=== PATIENT | male | born 1975 | race Hispanic/Latino ===

== ENCOUNTER 2018-09-28 13:35 | Emergency (ER) | payer OTHER ==
--- NOTE | 2018-09-28 14:39 | RAD ---
THREE VIEWS RIGHT HAND: Comparison: None. History: Fall from ladder 10 ft with right hand pain. FINDINGS: Three views of the right hand shows a fracture adjacent to the DIP joint of the middle finger. This f racture likely arises from the base of the distal phalanx. Surrounding soft tissue swelling is seen. There is a lucency in the distal aspect of the middle phalanx which could also potentially represent a fracture. IMPRESSION: Fracture of the ring finger distal phalanx with possible additional fracture of the middle phalanx. POS: TPC
--- NOTE | 2018-09-28 15:07 | RAD ---
RADIOGRAPH RIGHT TIBIA AND FIBULA 2 VIEWS: Date: 09/28/18 HISTORY: 43-year-old male status post acute trauma to the right leg from fall from ladder. FINDINGS: There is no fracture of the tibia or fibula. IMPRESSION: Negative. POS: ZAMZAM
== END 2018-09-28 16:18 | disposition home or self-care (01) ==
LOC: ERS 13:35
DX: S62.634A Displaced fracture of distal phalanx of right ring finger, initial encounter for closed fracture (principal); W11.XXXA Fall on and from ladder, initial encounter

== ENCOUNTER 2018-10-06 10:47 | Day surgery (SDC) | payer OTHER ==
[2018-10-05 17:30] VITALS: BMI 34.0
[2018-10-06] MEDS ORDERED: CEFAZOLIN 2 GM/50 ML BAG ONE (11:34)
[2018-10-06] MEDS ORDERED: Fentanyl 100 MCG/2 ML VIAL ONE ×2 (13:11→15:06)
[2018-10-06] MEDS ORDERED: Midazolam HCl 2 mg/2 ml Vial ONE (13:11)
[2018-10-06] MEDS ORDERED: Bupivacaine PF 0.5% 30 ML VIAL ONE (13:46)
[2018-10-06] MEDS ORDERED: Labetalol HCl 100 MG/20 ML VIAL ONE (14:21)
[2018-10-06] MEDS ORDERED: PROPOFOL 200 MG/20 ML VIAL ONE (14:21)
[2018-10-06] MEDS ORDERED: Dexamethasone 20 MG/5 ML VIAL ONE (14:21)
[2018-10-06] MEDS ORDERED: PHENYLEPHRINE-NS 100 MCG/ML 10 ML SYRINGE ONE (14:21)
[2018-10-06] MEDS ORDERED: Ondansetron PF 4 MG/2 ML Vial ONE (14:21)
--- NOTE | 2018-10-06 17:01 | OP ---
DATE OF SURGERY: 10/06/2018 PREOPERATIVE DIAGNOSIS: Volar flexor digitorum profundus avulsion fracture of distal phalanx ring fi nger, right. POSTOPERATIVE DIAGNOSIS: Volar flexor digitorum profundus avulsion fracture of distal phalanx ring f louann, right. SURGICAL PROCEDURE: Open reduction internal fixation of volar base avulsion fracture, distal phalanx , ring finger, right. ANESTHESIA: General. SURGEON: Ismael Cardenas MD CO-SURGEON: Rush Isaacs M.D. IMPLANTS: Synthes 1.3 mm locking plate, 5-hole with three 1.3 mm cortical screws. COMPLICATIONS: None. DRAINS: None. SPECIMEN: None. OUTCOME: Near anatomic alignment. INDICATIONS: Patient is a pleasant 43-year-old right hand dominant gentleman who sustained an injury to his right dominant ring finger while at work. He was seen and evaluated in our clinic on , at which time he was found to have a volar avulsion fracture from the distal phalanx of this ri ng finger. We have been awaiting workmen's compensation authorization for surgery. The patient is n ow taken to the operating room for stabilization of this avulsion injury. Due to the nature of the a vulsion injury and resultant loss of attachment of the flexor digitorum profundus, I asked Dr. Ismael Cardenas to be present for the surgical case to get hand subspecialty expertise. He was kind enough to agree. PROCEDURE: The patient was brought to the operating room and a timeout performed followed by inducti on of general anesthesia. Next, a sterile prep and drape was performed of the right upper extremity. The limb was then exsanguinated with Esmarch bandage, tourniquet inflated to 250 mmHg. Next, an in cision was made along the radial border of the ring finger, starting just to the radial side of the p ad of the digit crossing the flexor crease on the radial border of the DIP joint and then extending f urther proximal to allow for formation of a flap to expose the volar surface of the DIP joint. After skin was sharply incised, dissection was carried down bluntly and a flap produced and reflected to t he ulnar side of the digit. The radial border neurovascular bundle was visualized and retracted radi ally. Next, the fracture hematoma was lavaged from the wound. The volar avulsion fracture was ident ified. This was held up by the A4 juan c with the flexor digitorum profundus still attached to this avulsed fragment of bone. Once the fracture hematoma was lavaged from the wound and minimal subperio steal dissection performed to allow for visualization of the fracture edge as well as the base from w here it came. The fracture was reduced and then held reduced under C-arm guidance to demonstrate emily t near anatomic alignment had been achieved. This was then again reduced and then a 1.3 mm wide plat e was applied to the volar surface of the DIP and positioned appropriately under C-arm guidance. Onc e appropriately positioned, a 1.3 mm cortical screw was placed in the longitudinal limb of the plate compressing the volar avulsion fragment. Next, two additional 1.3 mm screws were passed through the horizontal limb of the plate capturing the fragment and getting compression across the fracture gap. AP lateral C-arm images were then obtained that showed acceptable alignment of the fracture and acce ptable positioning of the hardware. The wound was then thoroughly irrigated with normal saline. Ins pection was performed to ensure that the radial neurovascular bundle was not captured under the plate . Once this was confirmed, the tourniquet was let down. The finger did regain its capillary refill in the operating room. Further irrigation performed and then the incision was closed with 4-0 nylon in interrupted fashion. An Adaptic gauze, Webril, and a dorsal block splint was applied to the hand and then patient was transferred to recovery room in stable condition. There were no complications, and the patient tolerated the procedure well.
--- NOTE | 2018-10-08 09:52 | RAD ---
RIGHT FINGER THREE VIEWS: History: 43-year-old male with history of fracture fourth finger. FINDINGS: Three portable fluoroscopic spot views of the distal fourth finger are performed. Metal plate and scr ews are placed stabilizing a fracture through the volar base of the distal phalanx of the fourth fing er. POS: ZAMZAM
== END 2018-10-06 16:45 | disposition home or self-care (01) ==
LOC: SDC 10:47
PROVIDERS: ATTEND Orthopaedic Surgery Hand Surgery
PROC: 0PST04Z Reposition Right Finger Phalanx with Internal Fixation Device, Open Approach (ICD-10-PCS; principal; 2018-10-06)
DX: S62.639A Displaced fracture of distal phalanx of unspecified finger, initial encounter for closed fracture (principal)
CPT/HCPCS: 76001; 96374; J1100; J2250; J2405; J2704; J3010; S0020

== ENCOUNTER 2018-12-04 08:09 | Outpatient (CLI) | payer OTHER ==
--- NOTE | 2018-12-04 10:48 | MRI ---
MRI OF THE RIGHT FOURTH DIGIT: Date: 12/04/18 PROVIDED CLINICAL HISTORY: Open, displaced fracture of distal phalanx of right ring digit. FINDINGS: The flexor digitorum profundus tendon to the ring digit appears attenuated distally, from the level o f the proximal aspects of the middle phalanx to the level of the distal aspect of the middle phalanx. Due to susceptibility artifact, the region of FDP insertion upon the distal phalanx is not visualize d. There is redundancy of the FDP tendon to the fourth digit in the palm, supporting the presence of tear. The flexor digitorum superficialis tendon appears intact, as does the extensor apparatus. The f ourth MCP and PIP joints appear normal. No regional marrow edema is evident. Alignment appears anatom ic. No regional joint effusion is evident. IMPRESSION: Findings compatible with at least high grade partial disruption of the ring digit flexor digitorum pr ofundus tendon from its distal phalangeal insertion. Evaluation is limited due to metallic susceptibi lity artifact in this region. POS: OFF
== END 2018-12-04 08:10 | disposition home or self-care (01) ==
LOC: BICMRI 08:09
PROVIDERS: ATTEND Orthopaedic Surgery Hand Surgery
DX: S62.634D Displaced fracture of distal phalanx of right ring finger, subsequent encounter for fracture with routine healing (principal)

== ENCOUNTER 2019-01-26 00:07 | Outpatient (CLI) | payer OTHER ==
[2019-01-26 10:13] LABS: #Eosinphils 0.3 thou/uL (0.0-0.7); #Lymphocytes 1.5 thou/uL (1.20-3.40); #Monocytes 0.4 thou/uL (0.11-0.59); #Neutrophils 3.2 thou/uL (1.40-6.50); %Basophils 0.3 % (0.0-1.0); %Lymphocytes 27.9 % (21.0-51.0); %Neutrophils 59.8 % (42.0-75.0)
[2019-01-26 11:43] LABS: Hemoglobin 15.5 g/dL (14.0-18.0); Mean Corpuscular HGB CONC 33.2 g/dL (32.0-36.0); Mean Corpuscular Hemoglobin 28.1 pg (27.0-31.0); Mean Corpuscular Volume 84.6 fL (78.0-98.0); Platelet Count 105 thou/uL (130-400); RBC Distribution Width 12.5 % (11.5-14.5); Red Blood Cell (RBC) Count 5.53 mill/uL (4.70-6.10); White Blood Cell (WBC) Count 5.3 thou/uL (4.8-10.8)
[2019-01-26 11:44] LABS: Platelet Morphology Comment Appears Decreased; RBC Morphology Normal
== END 2019-01-26 00:08 | disposition home or self-care (01) ==
LOC: LABBT 00:07
PROVIDERS: ATTEND Orthopaedic Surgery Hand Surgery
DX: Z01.812 Encounter for preprocedural laboratory examination (principal); S56.115A Strain of flexor muscle, fascia and tendon of right ring finger at forearm level, initial encounter
CPT/HCPCS: 85025; 85652

== ENCOUNTER 2019-02-02 05:38 | Observation (INO) | payer OTHER ==
[2019-02-02] MEDS ORDERED: Midazolam HCl 2 mg/2 ml Vial ONE (06:01)
[2019-02-02] MEDS ORDERED: Fentanyl 100 MCG/2 ML VIAL ONE ×4 (06:01→17:47)
[2019-02-02] MEDS ORDERED: Betamet Acet/Betamet Na Ph 30 MG/5 ML VIAL ONE (06:55)
[2019-02-02] MEDS ORDERED: Bupivacaine PF 0.5% 30 ML VIAL ONE (06:55)
[2019-02-02] MEDS ORDERED: Bacitracin Zinc Ointment 30 gm TUBE ONE (06:55)
[2019-02-02] MEDS ORDERED: Clindamycin/D5W 600 mg/50 ml Premix Bag ONE (07:03)
[2019-02-02] MEDS ORDERED: PHENYLEPHRINE-NS 100 MCG/ML 10 ML SYRINGE ONE (08:22)
[2019-02-02] MEDS ORDERED: PROPOFOL 200 MG/20 ML VIAL ONE (08:22)
[2019-02-02] MEDS ORDERED: Dexamethasone 20 MG/5 ML VIAL ONE (08:22)
[2019-02-02] MEDS ORDERED: Lidocaine 1% PF 5 ML VIAL ONE (08:22)
[2019-02-02] MEDS ORDERED: ePHEDrine 50 MG/ML VIAL ONE (08:22)
[2019-02-02] MEDS ORDERED: Ondansetron PF 4 MG/2 ML Vial ONE (08:22)
--- NOTE | 2019-02-02 11:39 | RAD ---
SIX VIEWS OF FOURTH DIGIT RIGHT HAND: History: Fall. Previous surgical hardware removal. FINDINGS: Images demonstrate surgical removal of the plate and screws which were in the distal phalanx fourth d igit right hand. IMPRESSION: Surgical removal of plates and hardware in the distal phalanx fourth digit right hand. POS: ZAMZAM
[2019-02-02] MEDS ORDERED: Ketorolac Tromethamine 30 MG/ML VIAL ONE (12:05)
[2019-02-02] MEDS ORDERED: Ondansetron PF 4 MG/2 ML Vial IV PRN (12:12)
[2019-02-02] MEDS ORDERED: Morphine 4 MG/ML VIAL SLOW IVP PRN (12:12)
[2019-02-02] MEDS ORDERED: traMADol HCl 50 MG TAB PO PRN (12:12)
[2019-02-02] MEDS ORDERED: Bisacodyl 10 MG SUPP PR PRN (12:12)
[2019-02-02] MEDS ORDERED: Milk Of Magnesia 30 ML UDCUP PO PRN (12:12)
[2019-02-02] MEDS ORDERED: Communication Order-Pharmacy FS SCH ×2 (12:15)
[2019-02-02] MEDS ORDERED: Meperidine HCl/PF 25 MG/ML VIAL IM PRN (12:15)
[2019-02-02] MEDS ORDERED: TETANUS AND DIPHTHERIA TOX/PF 0.5 ML DISP.SYRIN IM SCH (13:00)
[2019-02-02] MEDS ORDERED: Vancomycin HCl 1.5 GM in Sodium Chloride 0.9% 250 ML 300 ML IVPB SCH (14:00)
[2019-02-02] MEDS ORDERED: Aspirin 81 mg Enteric Coated Tablet PO SCH (21:00)
[2019-02-02] MEDS ORDERED: Vancomycin HCl 1 GM in Premix Bag 1 BAG IVPB SCH (21:00)
[2019-02-02] MEDS: Aspirin 81 mg Enteric Coated Tablet PO SCH (21:27)
[2019-02-02] MEDS: Vancomycin HCl 1.5 GM in Sodium Chloride 0.9% 250 ML 300 ML IVPB SCH (21:28)
[2019-02-02 22:53] VITALS: BMI 35.5
[2019-02-03] MEDS: Aspirin 81 mg Enteric Coated Tablet PO SCH (08:47)
[2019-02-03] MEDS: HYDROcodone/Acetaminophen 5/325 mg Tablet PO PRN ×2 (08:47→15:26)
[2019-02-03] MEDS: Vancomycin HCl 1.5 GM in Sodium Chloride 0.9% 250 ML 300 ML IVPB SCH (08:47)
[2019-02-03 15:14] VITALS: BP 130/80; TEMP 98.3
--- NOTE | 2019-02-04 13:13 | OP ---
DATE OF PROCEDURE: 02/02/2019 PREOPERATIVE DIAGNOSIS: Right flexor digitorum profundus partial avulsion after type 4 where he had plate fixation and had tendon attached to the bony fragment. Radiographically, bony fragments here, but there was question of the tendon having from the avulsed bone piece. FINDINGS: Avulsed bone piece completely healed, tendon with a pseudotendon approximately 1 cm long and the tendon had retracted to the level of the A2 juan c. PROCEDURE PERFORMED: 1. Tenotomy, flexor digitorum profundus to allow to advance. 2. Flexor digitorum profundus tenolysis. 3. Flexor digitorum superficialis tenolysis. 4. Flexor digitorum profundus graft coming from one-half of the flexor carpi radialis tendon and placed back in the bone in zone 1 and 2. 5. Removal of plate distal phalanx with C-arm. 6. C-arm. SPECIMENS SENT: Part of the [place] flexor digitorum profundus. TOURNIQUET TIME: 120 minutes. ESTIMATED BLOOD LOSS: Approximately 50 mL. FINDINGS: profundus avulsion with the joint fracture level heal and severe adhesions of the flexor digitorum remnant pseudotendon to flexor digitorum superficialis. DESCRIPTION OF PROCEDURE: After successful general endotracheal anesthesia, the limb was prepped and draped. Limb was exsanguinated. Tourniquet inflated to 250 mmHg pressure. We gave him a block at the metacarpophalangeal joint level with 12 mL of 0.5% Marcaine without epinephrine. At that point, the patient then underwent a Jessica incision being extended proximally to its initially one, protected the neurovascular bundle. We visualized the plate and saw a small pseudotendon still attached to the avulsed fragment, but the avulsed fragment healed and there was no tendon beyond the A4 juan c. The pseudotendon was removed via tenolysis. A tenotomy was done to separate some pseudotendon of the flexor digitorum profundus and superficialis of the chiasm and in proximal chiasm, we found the adhesed flexor digitorum profundus. We performed a tenolysis, and then passed it and then passed the tendon back into the palm. A zigzag incision made approximately in the A1 juan c. The A1 juan c was released for better visualization. We then knew we have to harvest the graft. Now, we completed both the tenotomy and the tenolysis respectively in the right ring finger and then we took the C-arm and harvested the plate, removed all screws and knows that the avulsed fragment has healed. We then made a trough in the bone beginning just distal volar plate on the proximal aspect base of the palmar surfaces. Once we had done this, we confirmed with C-arm that the bone did not fracture, the trough was almost 5 mm wide, approximately 2.5 mm deep. We now found that the patient had no palmaris longus. We made a zigzag incision over flexor carpi radialis just proximal to the scaphoid, carried through skin and subcutaneous tissue, identifying the median nerve, which was protected, more volar than the nerve, was the flexor carpi radialis. We identified it at the wrist level, a spot 10 cm and another spot 6 x 3 cm proximal to the middle of the incision. Through all incisions, we visualized the flexor carpi radialis, then we harvested one-half of this and brought it into the field. It was thin enough to be passed and wide enough to be sturdy. We then prepared it, weaved a [id number] 3-0 Prolene into its most distal end and then brought this with the use of a Solorio curved tendon passer and a 22-gauge wire. We brought this into the field at the chiasm level, passed it under appropriate position under the flexor digitorum superficialis through the and the same was done at the distal 2 pulleys. Then, the tension on the Andres x5 on the each side of the tendon weave was excellent, so we then drilled with a K-wire racecar driver to long Fransico needles through the bone, leaving approximately 0.5 cm protruding palmarly and the other part coming in just at the base of the germinal matrix. I placed the each of the 2 juan c stitches, one in each K-wire and pulled this through from palmar to dorsal. At this point, we then tightly tied this construct after passing with the Fransico needles into a piece of Adaptic, then into the button in appropriate orientation to excellent fit. We then pulled on the end that was in the palm and we could completely flex the ring finger to the palm indicative of excellent tension. We then shortened the [place] base of the residual flexor digitorum profundus to the ring finger, and then we released the tourniquet. We then closed the skin and all the incisions of Jessica type on the ring finger had excellent circulation both before and after closure using a 4-0 nylon interrupted mattress pattern. Now, we appropriately tensioned with the help of the therapy assistant and did a Pulvertaft x3 weaves, each one 90 degrees oriented to the one before it and we maintained our attention. This wound was then closed in the palm and after obtaining hemostasis with interrupted 4-0 nylon, with extension to -30 degrees at the PIP joint, there was no gap formation and there was no evidence of catching or triggering. The patient then left the operating room with a bulky dressing on, bacitracin, Adaptic, 4 x 4 and no evidence of anesthetic or operative complication. Job ID: [id number]
== END 2019-02-03 16:27 | disposition home or self-care (01) ==
LOC: SDC 05:38 → INTOOBSV 12:14 → SURG B 12:14
PROVIDERS: ADMIT Orthopaedic Surgery Hand Surgery; ATTEND Orthopaedic Surgery Hand Surgery
PROC: 0LN80ZZ Release Left Hand Tendon, Open Approach (ICD-10-PCS; principal; 2019-02-03)
DX: S66.19 Other injury of flexor muscle, fascia and tendon of other and unspecified finger at wrist and hand level (principal); M79.2 Neuralgia and neuritis, unspecified; S62.634D Displaced fracture of distal phalanx of right ring finger, subsequent encounter for fracture with routine healing; S56.129D Laceration of flexor muscle, fascia and tendon of unspecified finger at forearm level, subsequent encounter
CPT/HCPCS: 76000; 96365; 96366; G0378; J0702; J1100; J1885; J2001; J2250; J2405; J2704; J3010; J3370; J3490; J7050; S0020

== ENCOUNTER 2019-05-24 09:04 | Outpatient (CLI) | payer OTHER ==
--- NOTE | 2019-05-24 12:26 | MRI ---
MRI RIGHT HAND: Date: 05/24/19 PROVIDED CLINICAL HISTORY: Adhesions of flexor extensor tendons. FINDINGS: Correlation made with MRI dated 12/04/18. Interval postoperative changes of hardware removal involving the ring digit distal phalangeal fractur e. Significant susceptibility artifact in this region persists, without evidence for disruption of th e distal, insertional portions of the FDP. There is interval development of dislocation of the flexor digitorum profundus tendon from its normal course deep to the flexor digitorum superficialis tendon at the level of the fourth metacarpal head and neck. Beginning at about the level of the fourth metacarpal neck, the flexor digitorum profundus tendon lies superficial to the flexor digitorum superficialis tendon as it courses adjacent to the fo urth MCP joint. At approximately the level of the proximal aspects of the fourth digit proximal phala nx, the flexor digitorum profundus tendon assumes its normal course deep to the FDS. Throughout its c ourse superficial to the FDS, the FDP appears irregular and alternatingly thickened and attenuated. The extensor apparatus appears normal. Interval development of signal alteration within the subcutaneous adipose layer about the abnormal co urse of the FDP at the level of the fourth MCP joint with foci of susceptibility suggesting postsurgi sharee change here. IMPRESSION: Findings compatible with interval disruption of the fourth A1 juan c and dislocation and partial tear ing of the FDP in this region as described above. POS: OFF
== END 2019-05-24 09:05 | disposition home or self-care (01) ==
LOC: SCSMRI 09:04
PROVIDERS: ATTEND Orthopaedic Surgery Hand Surgery
DX: M67.80 Other specified disorders of synovium and tendon, unspecified site (principal); L91.0 Hypertrophic scar; S66.114A Strain of flexor muscle, fascia and tendon of right ring finger at wrist and hand level, initial encounter

== ENCOUNTER 2019-06-30 16:23 | Outpatient (CLI) | payer OTHER ==
[2019-06-30 16:59] LABS: #Basophils 0.1 thou/uL (0.0-0.2); #Eosinphils 0.2 thou/uL (0.0-0.7); #Lymphocytes 1.6 thou/uL (1.20-3.40); #Monocytes 0.5 thou/uL (0.11-0.59); #Neutrophils 3.3 thou/uL (1.40-6.50); %Basophils 0.9 % (0.0-1.0); %Eosinophils 3.7 % (0.0-10.0); %Lymphocytes 28.3 % (21.0-51.0); %Monocytes 8.8 % (0.0-10.0); %Neutrophils 58.2 % (42.0-75.0); Mean Corpuscular HGB CONC 33.9 g/dL (32.0-36.0); Mean Corpuscular Hemoglobin 28.9 pg (27.0-31.0); Mean Corpuscular Volume 85.3 fL (78.0-98.0); Platelet Count 102 thou/uL (130-400); RBC Distribution Width 12.5 % (11.5-14.5); Red Blood Cell (RBC) Count 5.55 mill/uL (4.70-6.10); White Blood Cell (WBC) Count 5.7 thou/uL (4.8-10.8)
== END 2019-06-30 16:24 | disposition home or self-care (01) ==
LOC: LABBT 16:23
PROVIDERS: ATTEND Orthopaedic Surgery Hand Surgery
DX: Z01.812 Encounter for preprocedural laboratory examination (principal); M67.80 Other specified disorders of synovium and tendon, unspecified site; S63.254A Unspecified dislocation of right ring finger, initial encounter
CPT/HCPCS: 85025

== ENCOUNTER → 2019-07-02 | Day surgery (SDC) | payer OTHER ==
[2019-06-30 16:17] VITALS: BMI 35.4
[~2019-07-02] MED LIST: Bacitracin Zinc Ointment 30 gm TUBE ONE; Betamet Acet/Betamet Na Ph 30 MG/5 ML VIAL ONE; Bupivacaine PF 0.5% 30 ML VIAL ONE; Dexamethasone 20 MG/5 ML VIAL ONE; Fentanyl 100 MCG/2 ML VIAL ONE; Ketorolac Tromethamine 30 MG/ML VIAL ONE; Lidocaine 1% PF 5 ML VIAL ONE; Lidocaine 2% Jelly 5 ML TUBE ONE; Ondansetron PF 4 MG/2 ML Vial ONE; PHENYLEPHRINE-NS 100 MCG/ML 10 ML SYRINGE ONE; PROPOFOL 200 MG/20 ML VIAL ONE; Phenylephrine HCL 10 MG/ML VIAL ONE; ceFAZolin Sodium (SDC) 2 GM/100 ML BAG ONE; ePHEDrine 50 MG/ML VIAL ONE
--- NOTE | 2019-07-03 08:25 | RAD ---
EXAM: Right fourth finger: INDICATIONS: Intraoperative imaging during capsulotomy procedure. COMPARISON: None. FINDINGS: 4 fluoroscopic images are presented. These images demonstrate metallic screw transfixing the DIP joint. IMPRESSION: Intraoperative imaging
--- NOTE | 2019-07-05 10:23 | OP ---
DATE OF PROCEDURE: PREOPERATIVE DIAGNOSES: 1. Right ring finger proximal interphalangeal joint contracture with joint capsule contracture. 2. Flexor tendon adhesions with lack of complete flexor tendon excursion after previous flexor digitorum profundus zone 1 tendon graft using the palmaris. 3. Distal interphalangeal joint absent active flexion with mild narrowing joint. POSTOPERATIVE DIAGNOSES: 1. Right ring finger proximal interphalangeal joint contracture with joint capsule contracture. 2. Flexor tendon adhesions with lack of complete flexor tendon excursion after previous flexor digitorum profundus zone 1 tendon graft using the palmaris. 3. Distal interphalangeal joint absent active flexion with mild narrowing joint. 4. Findings of marked adhesions in the proximal A1 juan c of the tendon graft to the juan c, itself, and down into the flexor digitorum superficialis. PROCEDURES PERFORMED: 1. Right ring finger flexor tenolysis, palm and finger. 2. Right ring finger proximal interphalangeal joint capsulectomy with release. 3. Right ring finger distal interphalangeal joint arthrodesis using 2.4 cannulated screw x1. 4. A1 juan c release/trigger digit release. SPECIMENS SENT: The adhesions from the tenolysis were sent as part of specimen. FINDINGS: Right ring finger findings were; 1. The flexor digitorum superficialis and flexor digitorum profundus graft adherent, but the graft was intact in the palm. 2. Tight PIP joint capsule. 3. DIPJ narrowing seen as possible early arthritis at the distal interphalangeal joint. INDICATIONS: The patient had first a type 4 tendon rupture repair primarily and then when that did not work, we removed his plate because the fracture heal and perform a flexor tendon graft. Although, he had some pull through, he never was able to achieve tip of the palm flexion, so we felt that he may have an attenuated repair and that more than likely he would need some type of tenolysis and joint release because of the PIP joint contracture and flexion with extension loss and tenolysis plus keeping this tendon repair alone or tenolysis plus arthrodesis. Immediately, the patient having the limb prepped and draped, tourniquet deflated. We saw him relax. I could not passively extend his PIP joint beyond -50 degrees of extension (50 degrees of flexion) so we then exsanguinated the limb, inflated the tourniquet to 250 mmHg pressure, and then entered it first at the most proximal incision here, he had marked tendon adhesions both to the soft tissue, to the A1 juan c, and to itself. So, we did a flexor tenolysis extensive in the palm, and opened the A1 juan c and excised it, and then found slightly more debris, A2 juan c did not show abnormalities, so we then placed 3 mL of Celestone here. Finally, we had more tendon excursion which led to slightly wall motion. We then used the incision to begin the A2 juan c distal edge over to the A4 juan c and here we noticed marked amount of tendon adhesions, underwent formal flexor tenolysis down to including as indicated. Once this was done, we had finished the tenolysis, and then we dissected the gutters even more free around the PIP joint, just proximal to this, retracted the flexor mass radially and then the neurovascular bundle and ulnar, opened up the ulnar side with a capsulotomy and capsulectomy at the proximal phalangeal joint. We then oriented ourselves completely opposite and did the same thing on the radial side. After two iterations, ligament along with a capsulectomy was completed and we slowly gently extended the PIP joint until it was at 0 degrees of extension. We could not achieve hyperextension, however. We then had visualized the previous repair, had no defect, but because of the fact it did not cause adequate excursion, and we could only release so much, we then decided to perform arthrodesis in 35 to 40 degrees of flexion. This was done by reinflated the tourniquet, performing an H-type incision with a transverse limb being over the joint at the distal interphalangeal joint. We then made a transverse incision in the tendon, extensor visualized the joint, where there was marked narrowing and early sclerosis but we finished this discussion by performing. The patient then had the entire distal interphalangeal joint of this finger decorticated, was made using combination of wong, rongeur, and . We were able to restore the configuration, passed a guidewire through a small 4 mm opening and digit in the center of the saggital plane and frontal plane, until we had achieved fixation with over 3 cm of wire protruding. We then measured this appropriately, placed a 36 mm screw and buried it deep in the soft tissue and on the edge of the bone, and the patient had no evidence of anesthetic or operative complication. The patient then had C-arm confirmed in the screw position, released the tourniquet, closed the wounds with interrupted 4-0 nylon in a simple mattress pattern and the patient then left the operating room with a splint and no evidence of anesthetic or operative complication once the arthrodesis was completed. Job ID: [id number]
== END ==
LOC: SDC 05:49
PROVIDERS: ATTEND Orthopaedic Surgery Hand Surgery
PROC: 0RGW04Z Fusion of Right Finger Phalangeal Joint with Internal Fixation Device, Open Approach (ICD-10-PCS; principal; 2019-07-02)
PROC: 0LN70ZZ Release Right Hand Tendon, Open Approach (ICD-10-PCS; principal; 2019-07-02)
PROC: 0RNW0ZZ Release Right Finger Phalangeal Joint, Open Approach (ICD-10-PCS; principal; 2019-07-02)
DX: M24.541 Contracture, right hand (principal); M67.843 Other specified disorders of tendon, right hand; S66.811A Strain of other specified muscles, fascia and tendons at wrist and hand level, right hand, initial encounter; M75.101 Unspecified rotator cuff tear or rupture of right shoulder, not specified as traumatic; M75.01 Adhesive capsulitis of right shoulder
CPT/HCPCS: 76000; 88304; C1713; J0131; J0690; J0702; J2370; J3010; S0020

== ENCOUNTER 2025-08-17 08:55 | Emergency (ER) | payer OTHER, SELFPAY ==
[2025-08-17 10:13] LABS: #Basophils 0.03 10x3/uL (0.0-0.2); #Eosinophils 0.35 10x3/uL (0.0-0.7); #Monocytes 0.45 10x3/uL (0.11-0.59); #Neutrophils 5.40 10x3/uL (1.40-6.50); %Basophils 0.4 % (0.0-1.0); %Eosinophils 4.7 % (0.0-10.0); %Lymphocytes 15.8 % (21.0-51.0); %Monocytes 6.1 % (0.0-10.0); %Neutrophils 72.9 % (42.0-75.0); Hematocrit 47.4 % (42.0-52.0); Hemoglobin 16.0 g/dL (14.0-18.0); Mean Corpuscular Hemoglobin 27.7 pg (27.0-31.0); Mean Corpuscular Volume 82.1 fL (78.0-98.0); Platelet Count 142 10x3/uL (130-400); Red Blood Cell (RBC) Count 5.77 mill/uL (4.70-6.10); White Blood Cell (WBC) Count 7.41 10x3/uL (4.8-10.8)
[2025-08-17 10:33] LABS: ALT (SGPT) 65 U/L (Less than 45); AST (SGOT) 33 U/L (11-34); Albumin 4.2 g/dL (3.1-4.5); Alkaline Phosphatase 115 U/L (40-110); Anion Gap 15 mmol/L (10-20); BUN (Urea Nitrogen) 14 mg/dL (8.4-25.7); Bilirubin, Total 1.0 mg/dL (0.3-1.2); Calc. Creatinine Clearance 0 mL/min (70-130); Calcium 9.1 mg/dL (7.8-10.44); Carbon Dioxide 23 mmol/L (22-29); Chloride 105 mmol/L (98-107); Globulin 3.2 g/dL (2.4-3.5); Glucose 116 mg/dL (70-105); Potassium 3.7 mmol/L (3.5-5.1); Sodium 139 mmol/L (136-145)
[2025-08-17] MEDS ORDERED: Ketorolac Tromethamine 30 MG (1 mL) VIAL ONE (11:09)
== END 2025-08-17 12:33 | disposition home or self-care (01) ==
LOC: ERS 08:55
DX: L03.113 Cellulitis of right upper limb (principal)
CPT/HCPCS: 36415; 80053; 85025; 96372; 99283; J1885